=== PATIENT | female | born 1985 | race Hispanic/Latino ===

== ENCOUNTER 2018-04-06 07:53 | Outpatient (CLI) | payer OTHER | END 2018-04-06 07:54 | disposition home or self-care (01) | LOC: BICULT 07:53 | PROVIDERS: ATTEND Family Medicine | DX: R10.31 Right lower quadrant pain (principal) | CPT/HCPCS: 76705 ==

== ENCOUNTER 2019-05-30 09:56 | Emergency (ER) | payer OTHER, SELFPAY ==
[2019-05-30 10:54] LABS: #Eosinphils 0.2 thou/uL (0.0-0.7); #Lymphocytes 2.1 thou/uL (1.20-3.40); #Monocytes 0.7 thou/uL (0.11-0.59); #Neutrophils 6.2 thou/uL (1.40-6.50); %Basophils 0.5 % (0.0-1.0); %Eosinophils 2.5 % (0.0-10.0); %Lymphocytes 22.8 % (21.0-51.0); %Monocytes 7.8 % (0.0-10.0); %Neutrophils 66.4 % (42.0-75.0); Hemoglobin 11.2 g/dL (12.0-16.0); Mean Corpuscular HGB CONC 36.2 g/dL (32.0-36.0); Mean Corpuscular Hemoglobin 33.6 pg (27.0-31.0); Mean Corpuscular Volume 92.6 fL (78.0-98.0); Mean Platelet Volume 7.5 fL (7.4-10.4); Platelet Count 223 thou/uL (130-400); RBC Distribution Width 11.2 % (11.5-14.5); Red Blood Cell (RBC) Count 3.34 mill/uL (4.20-5.40); White Blood Cell (WBC) Count 9.3 thou/uL (4.8-10.8)
[2019-05-30 11:03] LABS: Bilirubin Negative (Negative); Blood, Urine Negative (Negative); Clarity Turbid (Clear); Glucose, Urine (Dipstick) Normal (Negative); Leukocyte Negative Leu/uL (Negative); Nitrite Negative (Negative); Protein, Urine (Dipstick) Negative (Neg-Trace); Urobilinogen Normal mg/dL (Less than 2)
[2019-05-30 11:07] LABS: ALT (SGPT) 34 U/L (8-55); AST (SGOT) 29 U/L (5-34); Albumin 3.7 g/dL (3.5-5.0); Alkaline Phosphatase 66 U/L (40-110); Anion Gap 10 mmol/L (10-20); BUN (Urea Nitrogen) 6 mg/dL (7.0-18.7); Bilirubin, Total 0.3 mg/dL (0.2-1.2); Calc. Creatinine Clearance 0 mL/min (70-130); Calcium 9.4 mg/dL (7.8-10.44); Carbon Dioxide 26 mmol/L (22-29); Chloride 105 mmol/L (98-107); Estimated GFR-MDRD Greater than 90; Globulin 3.4 g/dL (2.4-3.5); Glucose 105 mg/dL (70-105); Potassium 3.6 mmol/L (3.5-5.1); Protein, Total 7.1 g/dL (6.0-8.3); Sodium 137 mmol/L (136-145)
--- NOTE | 2019-05-30 11:45 | ULT ---
Pelvic sonogram transabdominal and transvaginal imaging HISTORY: Early . Pelvic pain. FINDINGS: Urinary bladder is unremarkable. Uterus has a heterogeneous echotexture. Gestational sac wi thin the endometrial cavity. Fetus measurements correlate with 13 weeks 2 days gestational age. No heart motion demonstrated with multiple evaluations. Small amount of subchorionic hemorrhage . No free fluid within the pelvis. Neither ovary well visualized. No adnexal masses apparent. IMPRESSION: Absent heart tones. Evidence of intrauterine demise.
== END 2019-05-30 13:02 | disposition home or self-care (01) ==
LOC: ERS 09:56
DX: O03.30 Unspecified complication following incomplete spontaneous abortion (principal)
CPT/HCPCS: 36415; 76856; 80053; 81003; 84702; 85025; 86900; 86901

== ENCOUNTER 2019-05-31 08:00 | Inpatient (IN) | payer MEDICAID, OTHER, SELFPAY ==
--- NOTE | 2019-05-31 08:46 | PDOC.FPROB ---
FMR OB H&P: HPI - History of Present Illness Chief Complaint: abdominal pain, IUFD Indentification: 33 yo @ 14.5 wks by LMP/12.4 wks History of Present Illness: 33yo with pmh of late term demise and PPhemorage presents for induction of IUFD of 14.6wEGA fetus. Complains of 2 days of mild RUQ abdominal pain but otherwise asymptomatic. No vaginal bleeding/discharge. No fevers chills Previous demise was at the Med. Pt reports to have gone to third trimester and was having but her baby was when delivered. Does not know cause of demise. Denies trauma, Denies family hx of clotting d/o, denies substance use, denies medical problems. Primary Care Physician: [facility] FMR OB H&P: Current - Care : 3 Para: 2 Gestational age: 14.5 weeks Due date: 11/23/18 Dating Criteria: LMP/12.4 week sono - OB Labs Blood type: O RH: positive Antibody Screen: negative HIV: negative RPR: negative HepBsAg: negative Rubella: immune Quad screen: unknown Urine drug screen: not done Gonorrhea: negative Chlamydia: negative A1c: 5.7 H&H: 12.2/35.5 Additional labs: TSH 1.19 - First Trimester Ultrasound First trimester: 12.4 week sono. [place] 82.2% on CRL. ALO c/w LMP FMR OB H&P: History - Past Medical History PMH: None - OB History OB History: LTCSx2 Preg #1 primary LTCS @ term 2/2 failed IOL Preg #2 IUFD @33.6 wks w/ rLTCS deilvery w/ PP endometritis and PPH requiring bakri balloon - CAR PRE COOLER History CAR PRE COOLER History: Last pap was 2018. No abnormal paps - Surgical History Sx History: LTCS x2 - Social History Social History: Lives at home with and son. Has outsdie cat. Denies any smoking, alcohol or illicit drug use. - Family History Family History: Father- DMII, Mom- Asthma FMR OB H&P: Medications - Current Home Medications: Medication Instructions Recorded Confirmed Type No Known 05/31/19 05/31/19 History Allergies/Adverse Reactions: Allergies Allergy/AdvReac Type Severity Reaction Status Date / Time No Known Allergies Allergy Verified 05/31/19 10:09 FMR OB H&P: ROS - Review of Systems General: denies: fever/chills, fatigue Eyes: denies: vision changes, double vision ENT: denies: nasal congestion, rhinorrhea Cardiovascular: denies: chest pain, palpitation Respiratory: denies: cough, congestion Gastrointestinal: reports: abdominal pain. denies: nausea, vomiting, diarrhea, constipation Genitourinary (Female): denies: incontinence, dysuria, hematuria, polyuria Musculoskeletal: denies: pain, stiffness Neurologic: denies: numbness, syncope Integumentary: denies: itching, rash Hematologic/Lymphatic: denies: prolonged or excessive bleeding, enlarged lymph nodes Psychological: denies: depression, anxiety FMR OB H&P: Vital Signs - Maternal Vital signs: reviewed and WNL FMR OB H&P: Physical Exam - Physical Exam General: NAD, awake, alert and oriented HEENT: normocephalic and atraumatic, EOMI, MMM Neck: supple, trachea midline Chest: non-tender to palpation Breast: symmetric Heart: RRR, normal S1/S2 General: CTAB, no respiratory distress Abdomen: soft Deviation from normal: negative montoya/mcburney Musculoskeletal: normal gait and station, pulses present Neurological: no focal deficit Skin: no rash, good tugor Lymphatic: no unusual bruising or bleeding Psychiatric: intact recent and remote memory, normal mood and affect FMR OB H&P: A/P - Problem List (1) IUFD (intrauterine ) Current Visit: Yes Status: Acute Code(s): [id number] - Discussion: Date/Time: 05/31/19 0844 IUFD at of 14.6w EGA fetus A- cause of demise is illusive at this time. Will need to do workup to r/ o preventable causes and or clotting disorders. P- Admit to L&D -cytotec 600mcg Q4H to induce labor -Tylenol for pain, will give epidural as option to pt -IVF -CBC, CMP, coags -UA, VP3, GCC -cardiolipin, lupus ag, factor 5, BEA Addendum - Attending - Attending Attestation Date/Time: 05/31/192136 I personally evaluated the patient and discussed the management with Dr. Dhillon I agree with the History, Examination, Assessment and Plan documented above with any addition or exceptions noted below - 33 yo @14.5 weeks here for induction due demise. Denies any abdominal pain, VB. POBHx: #1 Term C/ S for failed IOL #2 Repeat C/S complicated by endometritis and PPH; infant stillbirth. Afebrile VSS Exam repeated by me and agree iwth resident's findings. A/P: 1) demise at 14 weeks- Admit to L&D for cytotec induction. Risks discussed with patient and family; verbalized understanding. As this is a second trimester loss, will proceed with evaluation- BEA, lupus anticoagulant, anticardiolipin ab, etc.
[2019-05-31 09:05] VITALS: BMI 29.4
[2019-05-31] MEDS ORDERED: Methylergonovine 0.2 MG/ML VIAL IM PRN (09:26)
[2019-05-31] MEDS ORDERED: Ondansetron PF 4 MG/2 ML Vial IVP PRN (09:26)
[2019-05-31] MEDS ORDERED: Promethazine HCl 25 MG/ML VIAL IM PRN (09:26)
[2019-05-31] MEDS ORDERED: NS / Oxytocin 40 units/1000ml 1,000 ML IV PRN (09:26)
[2019-05-31] MEDS ORDERED: Acetaminophen 500 MG TAB PO PRN (09:26)
[2019-05-31] MEDS ORDERED: Ibuprofen 800 MG TAB PO PRN (09:26)
[2019-05-31] MEDS ORDERED: hydrALAZINE 20 MG/ML VIAL SLOW IVP PRN ×2 (09:26)
[2019-05-31] MEDS ORDERED: Carboprost 250 MCG/ML AMP IM PRN (09:26)
[2019-05-31] MEDS ORDERED: Misoprostol 200 MCG TAB PR PRN ×2 (09:26→10:53)
[2019-05-31] MEDS ORDERED: Lidocaine 1% (PF) 30 ML VIAL SC PRN (09:26)
[2019-05-31] MEDS ORDERED: Misoprostol 100 MCG TAB VAG SCH (09:30)
[2019-05-31 10:05] LABS: #Eosinphils 0.1 thou/uL (0.0-0.7); #Lymphocytes 1.6 thou/uL (1.20-3.40); #Monocytes 0.5 thou/uL (0.11-0.59); #Neutrophils 6.7 thou/uL (1.40-6.50); %Basophils 0.4 % (0.0-1.0); %Eosinophils 1.5 % (0.0-10.0); %Lymphocytes 17.9 % (21.0-51.0); %Monocytes 5.6 % (0.0-10.0); %Neutrophils 74.5 % (42.0-75.0); Hemoglobin 11.3 g/dL (12.0-16.0); Mean Corpuscular HGB CONC 35.5 g/dL (32.0-36.0); Mean Corpuscular Hemoglobin 32.9 pg (27.0-31.0); Mean Corpuscular Volume 92.7 fL (78.0-98.0); Mean Platelet Volume 8.2 fL (7.4-10.4); Platelet Count 221 thou/uL (130-400); RBC Distribution Width 11.3 % (11.5-14.5); Red Blood Cell (RBC) Count 3.45 mill/uL (4.20-5.40)
[2019-05-31 10:15] LABS: INR-International Normal Ratio 1.1; PTT 29.4 SEC (22.9-36.1); Prothrombin Time 13.7 SEC (12.0-14.7)
[2019-05-31 10:29] LABS: ALT (SGPT) 32 U/L (8-55); AST (SGOT) 30 U/L (5-34); Albumin 3.7 g/dL (3.5-5.0); Alkaline Phosphatase 61 U/L (40-110); Anion Gap 11 mmol/L (10-20); BUN (Urea Nitrogen) 6 mg/dL (7.0-18.7); Bilirubin, Total 0.4 mg/dL (0.2-1.2); Calc. Creatinine Clearance 151 mL/min (70-130); Calcium 9.1 mg/dL (7.8-10.44); Carbon Dioxide 24 mmol/L (22-29); Chloride 107 mmol/L (98-107); Estimated GFR-MDRD Greater than 90; Globulin 3.3 g/dL (2.4-3.5); Glucose 94 mg/dL (70-105); Potassium 3.5 mmol/L (3.5-5.1); Sodium 138 mmol/L (136-145)
[2019-05-31] MEDS ORDERED: Misoprostol 200 MCG TAB ONE ×2 (10:46→23:27)
[2019-05-31] MEDS: Misoprostol 200 MCG TAB PR PRN ×3 (11:00→21:31)
[2019-05-31 11:25] LABS: Bacteria/HPF 3+ HPF (None Seen); Bilirubin Negative (Negative); Blood, Urine Negative (Negative); Clarity Turbid (Clear); Glucose, Urine (Dipstick) Normal (Negative); Leukocyte Negative Leu/uL (Negative); Nitrite Negative (Negative); Protein, Urine (Dipstick) Negative (Neg-Trace); RBC/HPF 0-3 HPF (0-3); Urobilinogen Normal mg/dL (Less than 2)
[2019-05-31 11:27] LABS: Urine Culture Reflex No No
--- NOTE | 2019-05-31 17:56 | PDOC.LDPN ---
Labor & Delivery Progress Note - Subjective Subjective: comfortable - Objective Vital signs reviewed and normal: yes General: NAD Uterine fundus: non tender SVE: closed/thick/high - Assessment (1) IUFD (intrauterine ) Code(s): [id number] - Current Visit: Yes Status: Acute -: IUFD at of 14.6w EGA fetus A- cause of demise is illusive at this time. Will need to do workup to r/ o preventable causes and or clotting disorders. P- cytotec 600mcg Q4H to induce labor -Tylenol for pain, will give epidural as option to pt -IVF -f/u CBC, CMP, coags -f/u UA, VP3, GCC -f/u cardiolipin, lupus ag, factor 5, BEA
--- NOTE | 2019-05-31 19:32 | PDOC.LDPN ---
Labor & Delivery Progress Note - Subjective Subjective: comfortable - Objective Vital signs reviewed and normal: yes General: NAD Dilation: 10 Effacement: 100% - Assessment (1) IUFD (intrauterine ) Code(s): [id number] - Current Visit: Yes Status: Acute -: IUFD at of 14.6w EGA fetus P- 1900- complete, no products able to be appreciated on exam - discussed precautions with mother - mother would like road patcher to be called after passing products of conception -Tylenol for pain, patient states pain is well controlled - Hgb 11.3, INR 1.1 -f/u cardiolipin, lupus ag, factor 5, BEA - unknown source for IUFD # Hx PPH
--- NOTE | 2019-05-31 21:35 | PDOC.LDPN ---
Labor & Delivery Progress Note - Subjective Subjective: comfortable - Objective Vital signs reviewed and normal: yes General: NAD - Assessment (1) IUFD (intrauterine ) Code(s): [id number] - Current Visit: Yes Status: Acute -: IUFD at of 14.6w EGA fetus P- 1900- difficult check, cervix seems to be high and open bedside US shows POC in lower uterus, cervix appears open, large clot in vaginal vault Will give another dose of cytotec now - one dose at 1100 (did not dissolve, 2nd dose 1500, 3rd dose 2130 - discussed precautions with mother - mother would like rabble furnace tender to be called after passing products of conception -Tylenol for pain, patient states pain is well controlled - Hgb 11.3, INR 1.1 -f/u cardiolipin, lupus ag, factor 5, BEA - unknown source for IUFD # Hx PPH
[2019-05-31] MEDS ORDERED: Morphine 4 MG/ML VIAL ONE (23:06)
[2019-05-31] MEDS ORDERED: Morphine 4 MG/ML VIAL SLOW IVP PRN (23:52)
--- NOTE | 2019-06-01 01:39 | PDOC.OPDEL ---
OB Operative/Delivery Note - Additional Findings/Plan Compilations/Other Findings: Vaginal Delivery Procedure note Delivering Physician: Dr. Figueroa Attending: Dr. Ball Procedure: Spontaneous Vaginal Delivery QBL: 950 ml Pre-op Diagnosis: 1. 14.5 wk IUFD Post-op Diagnosis: 1. 14.5 wk IUFD Indications: A 33y/o female presented for induction for IUFD. elivery Note: This is 33y/o female at 14.5 wks delivered a M infant at 2300. She had received a total of 3 doses of cytotec. The was noted to be in the vaginal vault on US and was removed manually. The patient had many blood clots which were manually removed. The placenta did not pass so a speculum exam was used to visualize the placenta. Gentle Traction with ring forceps resulted in partial delivery of the placenta. 800mg of rectal cytotec was placed along with Bolus of Pitocin started and watchful waiting initiated. Post delivery plan: routine recovery Addendum - Attending - Attending Attestation Date/Time: 06/05/19 9475 I, Mp Ball MD, personally evaluated the patient and discussed indications for the procedure described by Dr. Figueroa.. I directly supervised and participated in the Spontaneous Vaginal Delivery and I agree with the description of procedure as documented above without any addition or exceptions.
--- NOTE | 2019-06-01 01:41 | PDOC.BPN ---
- Brief Progress Note On re-check patient's bleeding is scant Formerly discussed d&c with patient Will plan for manual exam around 0200 in order to give time for cytotec to take effect May need to go forward with d&c pending findings and bleeding, will f/u Dr. Bernabe was present during earlier speculum exam and possible d&c discussed.
--- NOTE | 2019-06-01 02:23 | PDOC.BPN ---
- Brief Progress Note repeat vaginal exam clot removed from vaginal vault 350ml total blood loss since delivery will check H/H at 0330 which is 4 hours after delivery Also will repeat exam at 0400 bleeding velocity is decreased, if she continues to bleed will need D&C
[2019-06-01 03:55] LABS: Hemoglobin 8.9 g/dL (12.0-16.0); Mean Corpuscular HGB CONC 35.7 g/dL (32.0-36.0); Mean Corpuscular Hemoglobin 32.8 pg (27.0-31.0); Mean Corpuscular Volume 92.1 fL (78.0-98.0); Mean Platelet Volume 7.1 fL (7.4-10.4); Platelet Count 193 thou/uL (130-400); RBC Distribution Width 11.1 % (11.5-14.5); Red Blood Cell (RBC) Count 2.72 mill/uL (4.20-5.40); White Blood Cell (WBC) Count 12.1 thou/uL (4.8-10.8)
--- NOTE | 2019-06-01 04:33 | PDOC.BPN ---
- Brief Progress Note Patient had 200ml bleeding since last check was light headed getting up to go the the restroom discussed R/B/A to D&C with patient, patient agreed to d&c for persistent bleeding Will arrange
[2019-06-01] MEDS ORDERED: Misoprostol 200 MCG TAB ONE (04:38)
[2019-06-01] MEDS ORDERED: Fentanyl 100 MCG/2 ML VIAL ONE (05:05)
[2019-06-01] MEDS ORDERED: Midazolam HCl 2 mg/2 ml Vial ONE (05:05)
[2019-06-01] MEDS ORDERED: Lidocaine 2% Jelly 5 ML TUBE ONE (05:06)
[2019-06-01] MEDS ORDERED: PHENYLEPHRINE-NS 100 MCG/ML 10 ML SYRINGE ONE ×3 (05:43→09:52)
[2019-06-01] MEDS ORDERED: Ondansetron HCl/PF 4 MG/2 ML Vial IVP PRN (06:17)
[2019-06-01] MEDS ORDERED: Promethazine HCl 25 MG/ML VIAL IM PRN (06:17)
[2019-06-01] MEDS ORDERED: Promethazine HCl 25 MG/ML VIAL SLOW IVP PRN (06:17)
[2019-06-01] MEDS ORDERED: Meperidine HCl/PF 25 MG/ML VIAL SLOW IVP PRN ×2 (06:17)
--- NOTE | 2019-06-01 06:25 | PDOC.OP ---
Operative Note - Operative Note Operative Note: PREOPERATIVE DIAGNOSIS: IUFD, retained placenta POSTOPERATIVE DIAGNOSIS: IUFD, retained placenta PROCEDURE PERFORMED: Suction, dilation, and curettage. ANESTHESIA: General ESTIMATED BLOOD LOSS: 350 mL. COMPLICATIONS: None. FINDINGS: Tissue consistent with retained placenta INDICATIONS: The patient is a 33-year-old 3, para 1 female at 14.5 weeks. She was induced using cytotec for delivery of IUFD. This delivery was completed at 2300 on 05/23/19. The patient had persistent bleeding for 3 hours after delivery and the placenta did not deliver despite cytotec, pitocin and manual exam. The patient was taken for emergent d&c as she became symptomatic and her hgb trended from 11-> 8.5. These findings were discussed with the patient and options including surgical management via dilation and curettage were discussed with the patient. After discussion o the patient opted for a suction, dilation, and curettage. The patient was described to the patient in detail including risks of infection, bleeding, injury to surrounding organs including risk of perforation. Informed consent was obtained prior to proceeding with the procedure. PROCEDURE NOTE: The patient was taken to the operating room where general anesthesia was administered without difficulty. The patient was prepped and draped in usual sterile fashion in lithotomy position. A weighted speculum was placed. The anterior lip of the cervix was grasped with a single tooth tenaculum. At this time, a uterine sound was advanced to a depth of 8 inches. 7- mm suction curettage was advanced into the uterine cavity without difficulty and was used to suction contents of the uterus. Following removal of the placenta, a john curette was advanced into the uterine cavity and was used to scrape the four pereyra of the uterus until a gritty texture was noted. At this time, the suction curette was advanced one additional time to suction any remaining products. All instruments were removed. Hemostasis was visualized. The patient was stable at the completion of the procedure. Sponge, lap, and instrument counts were correct.
--- NOTE | 2019-06-01 06:27 | PDOC.PP ---
Post Progress Note Post Day #: 1 Subjective: Patient is seen in PACU after D&C. She is still drowsy but arousable. She is denying pain at the moment. Vitals signs are stable. Weight Weight 75.296 kg P 88 BP 105/65 96 on RA R 18 - Physical Examination General: NAD Cardiovascular: no m/r/g, RRR Respiratory: clear to auscultation bilaterally, non-labored breathing Abdominal: + bowel sounds, lochia, no distention, appropriately TTP Fundus firm & at: just above pelvis Neurological: no gross focal deficits Psychiatric: A&Ox3, normal affect Result Diagrams: 06/01/19 06:21 05/31/19 09:52 Additional Labs: Post Labs Blood Type O POSITIVE 05/31/19 09:52 (1) IUFD (intrauterine ) Code(s): [id number] - Status: Acute (2) hemorrhage Code(s): O72.1 - OTHER IMMEDIATE HEMORRHAGE Status: Acute - Assessment/Plan # IUFD at of 14.6w EGA fetus, PPD 1 - delivered at 2300 on 05/31/19 after 3 rounds of cytotec - pitocin and cytotec used PP - patient went for D&C at 0500 - PP orders entered for after stay in recovery # PPH - ~1800 ml blood loss prior to D&C - EBL D&C 350ml - vital signs stable, patient was symptomatic with dizziness and nausea before procedure - 2 unit PRBC typed and cross - will monitor VS and UO, check H/H - consider transfusion later in the day Addendum - Attending - Attending Attestation Date/Time: 06/01/19 1830 I personally evaluated the patient and discussed the management with Dr. Angeline Figueroa. I agree with the History, Examination, Assessment and Plan documented above with any addition or exceptions noted below - Patient denies any complaints. Pain well controlled. Afebrile VSS. A/P: 1) s/p of DIU - continue current care 2) S/P D&C for retained products and hemorrhage - Bleeding better. Continue to monitor closely and repeat H/H in AM.
[2019-06-01] MEDS ORDERED: Bisacodyl 10 MG SUPP PR PRN (06:29)
[2019-06-01] MEDS ORDERED: hydrALAZINE 20 MG/ML VIAL SLOW IVP PRN (06:29)
[2019-06-01] MEDS ORDERED: HYDROcodone/Acetaminophen 5/325 mg Tablet PO PRN (06:29)
[2019-06-01] MEDS ORDERED: Ondansetron PF 4 MG/2 ML Vial IVP PRN (06:29)
[2019-06-01] MEDS ORDERED: Adacel (T-DAP) 0.5 ML SYRINGE IM ONE (06:29)
[2019-06-01] MEDS ORDERED: diphenhydrAMINE 25 MG CAP PO PRN (06:29)
[2019-06-01] MEDS ORDERED: Lanolin Ointment 7 GM TUBE TOP PRN (06:29)
[2019-06-01] MEDS ORDERED: Milk Of Magnesia 30 ML UDCUP PO PRN (06:29)
[2019-06-01] MEDS ORDERED: NS / Oxytocin 40 units/1000ml 1,000 ML IV SCH (06:30)
[2019-06-01 06:45] LABS: Hemoglobin 8.2 g/dL (12.0-16.0)
[2019-06-01] MEDS: Lactated Ringer's 1,000 ML IV SCH ×3 (07:45→19:45)
[2019-06-01] MEDS: Misoprostol 200 MCG TAB PR SCH ×2 (07:46→23:57)
[2019-06-01] MEDS ORDERED: PROPOFOL 200 MG/20 ML VIAL ONE (09:52)
[2019-06-01] MEDS ORDERED: Ondansetron PF 4 MG/2 ML Vial ONE (09:52)
[2019-06-01] MEDS ORDERED: Lidocaine 1% PF 5 ML VIAL ONE (09:52)
[2019-06-01] MEDS ORDERED: Dexamethasone 20 MG/5 ML VIAL ONE (09:52)
[2019-06-01] MEDS ORDERED: Succinylcholine Chloride 20 MG/ML 10 ml SYRINGE FS ONE (09:52)
[2019-06-01] MEDS: Ferrous Sulfate 325 MG TAB PO SCH ×2 (11:27→17:51)
[2019-06-01] MEDS: metroNIDAZOLE 500 MG TAB PO SCH ×2 (11:28→21:22)
[2019-06-01] MEDS: Docusate Calcium (SURFAK) 240 MG CAP PO SCH ×2 (11:28→21:22)
[2019-06-01] MEDS: Prenatal Vitamin 1 TAB PO SCH (11:28)
[2019-06-01] MEDS: Ibuprofen 800 MG TAB PO SCH ×2 (14:58→21:22)
[2019-06-02] MEDS: Lactated Ringer's 1,000 ML IV SCH ×2 (02:34→09:12)
[2019-06-02 04:29] LABS: Hemoglobin 6.5 g/dL (12.0-16.0)
--- NOTE | 2019-06-02 04:57 | PDOC.BPN ---
- Brief Progress Note AM Hgb 6.5 Ordered 1 U transfusion Discussed R/B/A with patient, she is in agreement with plan
[2019-06-02] MEDS: Ibuprofen 800 MG TAB PO SCH (05:40)
--- NOTE | 2019-06-02 06:09 | PDOC.PP ---
Post Progress Note Post Day #: 2 Subjective: ambulating well, stooling/voiding well. complains of abdominal discomfort. no fever/chills. PO intake tolerated: yes Flatus: yes Ambulation: yes Vital Signs (12 hours) Temp Pulse Pulse Resp BP BP Pulse Ox 06/02/19 05:35 98.3 F 70 16 89/50 L 98 06/02/19 05:20 98.3 F 72 16 81/50 L 99 06/02/19 01:10 98 F 74 18 95/54 L 98 06/01/19 20:00 109/51 L 06/01/19 19:51 99.5 F 92 20 89/54 L 97 Weight Weight 75.296 kg - Physical Examination General: NAD Cardiovascular: no m/r/g, RRR Respiratory: clear to auscultation bilaterally, non-labored breathing Abdominal: no distention, appropriately TTP Skin: no rash Neurological: no gross focal deficits Psychiatric: A&Ox3, normal affect Result Diagrams: 06/02/19 13:04 05/31/19 09:52 Additional Labs: Post Labs Blood Type O POSITIVE 05/31/19 09:52 (1) IUFD (intrauterine ) Code(s): [id number] - Status: Acute - Assessment/Plan IUFD at of 14.6w EGA fetus, PPD 1 A- delivered at 2300 on 05/31/19 after 3 rounds of cytotec. pitocin and cytotec used PP. pt s/p D&C. overall doing well P- possible DC today PPH A- about 1800 ml blood loss prior to D&C. EBL D&C 350ml. hemoglobin 6.5 overnight. 1u transfused P- will monitor VS and UO -check H/H after unit dispo: posisble dc today Addendum - Attending - Attending Attestation Date/Time: 06/02/19 I personally evaluated the patient and discussed the management with Dr. Dhillon on 06/02/2019 I agree with the History, Examination, Assessment and Plan documented above with any addition or exceptions noted below - Patient without complaints. Pain wel controlled. Denies any dizziness/ Afebrile VSS. A/P: 1) s/p of DIU, s/p D&C for retained placenta- H/H dropped- currently r eceiving 1 u pRBCs. Re check H/H 4 hours post transfusion. If stable, plan to D/C home. F/u in 2 weeks at [facility].
[2019-06-02] MEDS: Prenatal Vitamin 1 TAB PO SCH (08:23)
[2019-06-02] MEDS: Docusate Calcium (SURFAK) 240 MG CAP PO SCH (08:24)
[2019-06-02] MEDS: Ferrous Sulfate 325 MG TAB PO SCH (08:24)
[2019-06-02] MEDS: metroNIDAZOLE 500 MG TAB PO SCH (08:24)
[2019-06-02 11:58] VITALS: BP 94/57; TEMP 98.5
[2019-06-02 12:45] LABS: DRVVT Confirm 32.1; DRVVT Ratio 0.9 Ratio (1.2 or Less); HEX PHOS LA Tube 1 47.6 SEC; HEX PHOS LA Tube 2 47.2 SEC; Hexagonal Phospholipid Neut 0.4 SEC (0-8.0)
[2019-06-02 13:29] LABS: Hemoglobin 7.8 g/dL (12.0-16.0)
[2019-06-02 13:51] LABS: ANA Symphony (Qualitative) Negative (Negative); ANA Symphony (Quantitative) 0.1 Ratio (< 0.7 Negative); dsDNA IgG Antibody 0.6 IU/mL (<10 Negative)
[2019-06-02 14:33] LABS: Cardiolipin IgA Ab 1.8 APL-U/mL (<14 Negative); Cardiolipin IgG Ab Less than 0.5 GPL-U/mL (<10 Negative); Cardiolipin IgM Ab Less than 0.8 MPL-U/mL (<10 Negative); EliA APS New Method **** NEW METHOD ****
[2019-06-03 00:59] LABS: Chlamydia by PCR Not Detected (NotDetected)
[2019-06-05 15:10] LABS: Parvovirus B19 IgG ABS 7.8 index (0.0-0.8); Parvovirus B19 IgM ABS 0.2 index (0.0-0.8)
== END 2019-06-02 15:44 | disposition home or self-care (01) | DRG 770 ==
LOC: L&D 08:01 → 3SE 13:28 → L&D 13:34 → 3SE 06-01 14:08
PROVIDERS: ADMIT Family Medicine; ATTEND Family Medicine
PROC: 10E0XZZ Delivery of Products of Conception, External Approach (ICD-10-PCS; 2019-05-31)
PROC: 3E0P7VZ Introduction of Hormone into Female Reproductive, Via Natural or Artificial Opening (ICD-10-PCS; 2019-05-31)
PROC: 3E033VJ Introduction of Other Hormone into Peripheral Vein, Percutaneous Approach (ICD-10-PCS; 2019-05-31)
PROC: 10D17ZZ Extraction of Products of Conception, Retained, Via Natural or Artificial Opening (ICD-10-PCS; principal; 2019-06-01)
PROC: 30233N1 Transfusion of Nonautologous Red Blood Cells into Peripheral Vein, Percutaneous Approach (ICD-10-PCS; 2019-06-02)
DX: O02.1 Missed abortion (principal); O72.0 Third-stage hemorrhage; O72.1 Other immediate postpartum hemorrhage
CPT/HCPCS: 36415; 36430; 80053; 81001; 81240; 81241; 81291; 85014; 85018; 85025; 85027; 85245; 85246; 85300; 85303; 85305; 85598; 85610; 85613; 85730; 86038; 86147; 86225; 86747; 86850; 86900; 86901; 87480; 87491; 87510; 87660; 88300; 88305; J1100; J2001; J2250; J2270; J2405; J2704; J3010; P9016

== ENCOUNTER 2022-05-08 19:07 | Emergency (ER) | payer SELFPAY ==
[2022-05-08 19:36] LABS: Bilirubin Negative (Negative); Blood, Urine Negative (Negative); Glucose, Urine (Dipstick) Negative (Negative); Ketone, Urine Negative (Negative); Leukocyte Negative (Negative); Nitrite Negative (Negative); Protein, Urine (Dipstick) Negative (Neg-Trace); Specific Gravity, Urine 1.025 (1.005-1.030); Urobilinogen 0.2 mg/dL (Less than 2)
[2022-05-08 19:44] LABS: Clarity Clear (Clear)
[2022-05-08 19:45] LABS: Other Microscopic Description Less than 2 mL rec'd
[2022-05-08 20:28] LABS: Pregnancy Test - Urine (BHCG) Negative (Negative); Pregu Control Background? CLEAR/WHITE (CLR/WHITE); Pregu Control Bar Appear? YES (CONTROL BAR); Specific Gravity 1.025 (1.002-1.036)
== END 2022-05-08 21:11 | disposition home or self-care (01) ==
LOC: ERS 19:07
DX: K42.9 Umbilical hernia without obstruction or gangrene (principal)
CPT/HCPCS: 81003; 81025; 99284